=== PATIENT | female | born 1985 | race American Indian/Alaskan Native ===

== ENCOUNTER 2021-02-22 09:38 | Emergency (ER) | payer OTHER, MEDICAID ==
[2021-02-22 09:56] VITALS: BP 144/90
[2021-02-22] MEDS ORDERED: ACETAMINOPHEN 500 MG TAB PO STA (11:29)
[2021-02-22] MEDS ORDERED: IBUPROFEN 800 MG TAB PO STA (11:29)
[2021-02-22] MEDS ORDERED: IBUPROFEN 800 MG TAB ONE (11:35)
[2021-02-22] MEDS ORDERED: ACETAMINOPHEN 500 MG TAB ONE (11:35)
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
== END 2021-02-22 13:00 | disposition home or self-care (01) ==
LOC: ED 09:38
DX: M54.2 Cervicalgia (principal); M54.6 Pain in thoracic spine; F17.200 Nicotine dependence, unspecified, uncomplicated; Z98.890 Other specified postprocedural states; Z72.89 Other problems related to lifestyle; V87.7XXA Person injured in collision between other specified motor vehicles (traffic), initial encounter; Y93.89 Activity, other specified; Y92.488 Other paved roadways as the place of occurrence of the external cause; Y99.8 Other external cause status
CPT/HCPCS: 72040; 99283

== ENCOUNTER 2021-05-31 15:03 | Emergency (ER) | payer MEDICAID, OTHER ==
[2021-05-31] MEDS ORDERED: ACETAMINOPHEN 500 MG TAB PO ONE (15:33)
[2021-05-31 15:49] LABS: Basophils # (Auto) 0.1 K/mm3 (0.0-0.1); Basophils % (Auto) 0.6 % (0.0-1.8); Eosinophils # (Auto) 0.1 K/mm3 (0.0-0.4); Eosinophils % (Auto) 1.7 % (0.0-4.3); Hematocrit 32.5 % (30.3-42.9); Hemoglobin 11.1 gm/dl (10.1-14.3); Lymphocytes # (Auto) 1.8 K/mm3 (1.2-5.4); Lymphocytes % (Auto) 20.9 % (13.4-35.0); Mean Corpuscular HGB Conc 34 % (30-34); Mean Corpuscular Volume 87 fl (79-97); Monocytes # (Auto) 0.5 K/mm3 (0.0-0.8); Platelet Count 325 K/mm3 (140-440); Red Blood Count 3.75 M/mm3 (3.65-5.03); Red Cell Distribution Width 19.6 % (13.2-15.2)
[2021-05-31 16:04] LABS: Alanine Aminotransferase 14 units/L (7-56); Blood Urea Nitrogen 8 mg/dL (7-17); Calcium 9.2 mg/dL (8.4-10.2); Hemolysis Index 1
[2021-05-31 16:08] LABS: INR 0.95 (0.87-1.13)
[2021-05-31 16:10] LABS: Partial Thromboplastin Time 31.6 Sec. (24.2-36.6)
--- NOTE | 2021-05-31 16:13 | Emergency Department Report ---
ED HPI - General Chief complaint: Vaginal Bleeding Stated complaint: /CRAMPING/SPOTTING Time Seen by Provider: 05/31/21 15:31 Source: patient Mode of arrival: Ambulatory Limitations: No Limitations - History of Present Illness Initial comments: This is a 36-year-old female nontoxic, well nourished in appearance, no acute signs of distress presents to the ED with c/o of vaginal bleeding and pelvic pains x1 day. Patient stated yesterday she noticed some spotting. Stated goes about 1 pad in 24 hours since vaginal bleeding. Patient denies any upper abdominal pain. Describes pelvic pain as cramping. Patient denies any vaginal discharge or foul odor. Patient denies any nausea, vomiting, chest pain, shortness of breathe, fever, chills, headache, stiff neck, numbness, tingling. Patient denies any urinary symptoms. Patient denies any allergies or PMH. Patient stated she is unsure how far along she is. MD Complaint: vaginal bleeding, other (pelvic pain) -: days(s) Location: pelvis Radiation: none Severity: mild Severity scale (0 -10): 3 Quality: cramping Consistency: intermittent Improves with: none Worsens with: none Associated symptoms: vaginal bleeding. denies: nausea/vomiting, vaginal discharge, abdominal pain, dysuria, headache, vision changes, malaise, dysparuenia, rash, seizure, shortness of breath, syncope, weakness Vaginal bleeding: light :: Yes Pre- care: none - Related Data Previous Rx's Medication Instructions Recorded Last Taken Type Naproxen 500 mg PO BID PRN #20 tablet 02/22/21 Unknown Rx methocarbamoL [Methocarbamol] 750 - 1,500 mg PO TID PRN #24 02/22/21 Unknown Rx tablet 21/Iron Fu/Folic Acid 1 each PO DAILY #30 tablet 05/31/21 Unknown Rx [ Complete Caplet] Allergies Allergy/AdvReac Type Severity Reaction Status Date / Time No Known Allergies Allergy Unverified 05/31/21 15:15 ED Review of Systems ROS: Stated complaint: /CRAMPING/SPOTTING Other details as noted in HPI Comment: All other systems reviewed and negative Constitutional: denies: chills, fever Eyes: denies: eye pain, eye discharge, vision change ENT: denies: ear pain, throat pain Respiratory: denies: cough, shortness of breath, wheezing Cardiovascular: denies: chest pain, palpitations Endocrine: no symptoms reported Gastrointestinal: denies: abdominal pain, nausea, diarrhea Genitourinary: abnormal menses. denies: urgency, dysuria, frequency, hematuria, discharge, dyspareunia Musculoskeletal: denies: back pain, joint swelling, arthralgia Skin: denies: rash, lesions Neurological: denies: headache, weakness, paresthesias Psychiatric: denies: anxiety, depression Hematological/Lymphatic: denies: easy bleeding, easy bruising ED Past Medical Hx - Past Medical History Previous Medical History?: Yes Additional medical history: Childbirth by - Surgical History Past Surgical History?: Yes Additional Surgical History: , Umbilical hernia repair - Social History Smoking Status: Current Every Day Smoker Substance Use Type: Alcohol, Marijuana - Medications Home Medications: Home Medications Medication Instructions Recorded Confirmed Last Taken Type Naproxen 500 mg PO BID PRN #20 tablet 02/22/21 Unknown Rx methocarbamoL [Methocarbamol] 750 - 1,500 mg PO TID PRN #24 02/22/21 Unknown Rx tablet 21/Iron Fu/Folic Acid 1 each PO DAILY #30 tablet 05/31/21 Unknown Rx [ Complete Caplet] ED Physical Exam - General Limitations: No Limitations General appearance: alert, in no apparent distress - Head Head exam: Present: atraumatic, normocephalic - Eye Eye exam: Present: normal appearance - Neck Neck exam: Present: normal inspection, full ROM. Absent: lymphadenopathy - Respiratory Respiratory exam: Present: normal lung sounds bilaterally. Absent: respiratory distress, wheezes, rales, rhonchi, stridor, chest wall tenderness, accessory muscle use, decreased breath sounds, prolonged expiratory - Cardiovascular Cardiovascular Exam: Present: regular rate, normal rhythm, normal heart sounds. Absent: bradycardia, tachycardia, irregular rhythm, systolic murmur, diastolic murmur, rubs, gallop - GI/Abdominal GI/Abdominal exam: Present: soft, normal bowel sounds. Absent: distended, tenderness, guarding, rebound, rigid, diminished bowel sounds - Extremities Exam Extremities exam: Present: normal inspection, full ROM, normal capillary refill. Absent: tenderness - Back Exam Back exam: Present: normal inspection, full ROM. Absent: tenderness, CVA tenderness (R), CVA tenderness (L), muscle spasm, paraspinal tenderness, vertebral tenderness, rash noted - Neurological Exam Neurological exam: Present: alert, oriented X3, normal gait - Psychiatric Psychiatric exam: Present: normal affect, normal mood - Skin Skin exam: Present: warm, dry, intact, normal color. Absent: rash ED Course Vital Signs 05/31/21 15:13 Temperature 98.3 F Pulse Rate 74 Respiratory 16 Rate Blood Pressure 125/68 O2 Sat by Pulse 100 Oximetry - Reevaluation(s) Reevaluation #1: 05/31/21 16:13 Patient is speaking in full sentences with no signs of distress noted. ED Medical Decision Making - Lab Data Result diagrams: 05/31/21 15:36 05/31/21 15:36 Lab Results 05/31/21 05/31/21 05/31/21 Range/Units 15:36 15:36 15:36 WBC 8.6 (4.5-11.0) K/mm3 RBC 3.75 (3.65-5.03) M/mm3 Hgb 11.1 (10.1-14.3) gm/dl Hct 32.5 (30.3-42.9) % MCV 87 (79-97) fl MCH 30 (28-32) pg MCHC 34 (30-34) % RDW 19.6 H (13.2-15.2) % Plt Count 325 (140-440) K/mm3 Lymph % (Auto) 20.9 (13.4-35.0) % [place] % (Auto) 6.0 (0.0-7.3) % Eos % (Auto) 1.7 (0.0-4.3) % Baso % (Auto) 0.6 (0.0-1.8) % Lymph # (Auto) 1.8 (1.2-5.4) K/mm3 [place] # (Auto) 0.5 (0.0-0.8) K/mm3 Eos # (Auto) 0.1 (0.0-0.4) K/mm3 Baso # (Auto) 0.1 (0.0-0.1) K/mm3 Seg Neutrophils % 70.8 H (40.0-70.0) % Seg Neutrophils # 6.1 (1.8-7.7) K/mm3 PT (12.2-14.9) Sec. INR (0.87-1.13) APTT (24.2-36.6) Sec. Sodium 135 L (137-145) mmol/L Potassium 3.6 (3.6-5.0) mmol/L Chloride 100.8 (98-107) mmol/L Carbon Dioxide 24 (22-30) mmol/L Anion Gap 14 mmol/L BUN 8 (7-17) mg/dL Creatinine 0.5 L (0.6-1.2) mg/dL Estimated GFR > 60 ml/min BUN/Creatinine Ratio 16 % Glucose 85 (65-100) mg/dL Calcium 9.2 (8.4-10.2) mg/dL Total Bilirubin 0.30 (0.1-1.2) mg/dL AST 14 (5-40) units/L ALT 14 (7-56) units/L Alkaline Phosphatase 64 (35-129) units/L Total Protein 7.6 (6.3-8.2) g/dL Albumin 4.0 (3.9-5) g/dL Albumin/Globulin Ratio 1.1 % HCG, Quant [id number] H (0-4) mIU/mL Urine Color (Yellow) Urine Turbidity (Clear) Urine pH (5.0-7.0) Ur Specific [place] (1.003-1.030) Urine Protein (Negative) mg/dL Urine Glucose (UA) (Negative) mg/dL Urine Ketones (Negative) mg/dL Urine Blood (Negative) Urine Nitrite (Negative) Urine Bilirubin (Negative) Urine Urobilinogen (<2.0) mg/dL Ur Leukocyte Esterase (Negative) Urine WBC (Auto) (0.0-6.0) /HPF Urine RBC (Auto) (0.0-6.0) /HPF U Epithel Cells (Auto) (0-13.0) /HPF Urine Mucus /HPF Blood Type 05/31/21 05/31/21 05/31/21 Range/Units 15:36 15:36 Unknown WBC (4.5-11.0) K/mm3 RBC (3.65-5.03) M/mm3 Hgb (10.1-14.3) gm/dl Hct (30.3-42.9) % MCV (79-97) fl MCH (28-32) pg MCHC (30-34) % RDW (13.2-15.2) % Plt Count (140-440) K/mm3 Lymph % (Auto) (13.4-35.0) % [place] % (Auto) (0.0-7.3) % Eos % (Auto) (0.0-4.3) % Baso % (Auto) (0.0-1.8) % Lymph # (Auto) (1.2-5.4) K/mm3 [place] # (Auto) (0.0-0.8) K/mm3 Eos # (Auto) (0.0-0.4) K/mm3 Baso # (Auto) (0.0-0.1) K/mm3 Seg Neutrophils % (40.0-70.0) % Seg Neutrophils # (1.8-7.7) K/mm3 PT 13.2 (12.2-14.9) Sec. INR 0.95 (0.87-1.13) APTT 31.6 (24.2-36.6) Sec. Sodium (137-145) mmol/L Potassium (3.6-5.0) mmol/L Chloride (98-107) mmol/L Carbon Dioxide (22-30) mmol/L Anion Gap mmol/L BUN (7-17) mg/dL Creatinine (0.6-1.2) mg/dL Estimated GFR ml/min BUN/Creatinine Ratio % Glucose (65-100) mg/dL Calcium (8.4-10.2) mg/dL Total Bilirubin (0.1-1.2) mg/dL AST (5-40) units/L ALT (7-56) units/L Alkaline Phosphatase (35-129) units/L Total Protein (6.3-8.2) g/dL Albumin (3.9-5) g/dL Albumin/Globulin Ratio % HCG, Quant (0-4) mIU/mL Urine Color Yellow (Yellow) Urine Turbidity Slightly-cloudy (Clear) Urine pH 6.0 (5.0-7.0) Ur Specific [place] 1.013 (1.003-1.030) Urine Protein <15 mg/dl (Negative) mg/dL Urine Glucose (UA) Neg (Negative) mg/dL Urine Ketones Neg (Negative) mg/dL Urine Blood Sm (Negative) Urine Nitrite Neg (Negative) Urine Bilirubin Neg (Negative) Urine Urobilinogen < 2.0 (<2.0) mg/dL Ur Leukocyte Esterase Neg (Negative) Urine WBC (Auto) < 1.0 (0.0-6.0) /HPF Urine RBC (Auto) 2.0 (0.0-6.0) /HPF U Epithel Cells (Auto) 15.0 H (0-13.0) /HPF Urine Mucus Few /HPF Blood Type B POSITIVE - Radiology Data [address] [address] Ultrasound Report Signed Patient: MELISSA COKER MR#: [id number] 29 : 1985 Acct:[id number] Age/Sex: 36 / F ADM Date: 05/31/21 Loc: ED [facility] Dr: Ordering Physician: GISELL CHAIREZ NP Date of Service: 05/31/21 Procedure(s): US OB transvaginal Accession Number(s): [id number] cc: GISELL CHAIREZ NP ULTRASOUND OBSTETRIC INDICATION / CLINICAL INFORMATION: pelvic pain and bleeding. Clinical Gestational Age (GA) in weeks, days: Unknown TECHNIQUE: Transabdominal. Transvaginal COMPARISON: None available. FINDINGS: GESTATIONAL SAC: Well-defined oval shape and intrauterine in location. YOLK SAC: No significant abnormality. EMBRYO/FETUS: No significant abnormality. - [place]-Rump Length = 2.6 cm = 9 weeks, 3 days - Heart Rate, beats per minute (if present) = 174 ADNEXA: Both ovaries are well-visualized and appear unremarkable. No adnexal mass. FREE FLUID: None. ADDITIONAL FINDINGS: There is subchorionic hemorrhage along the inferior aspect of the gestational sac measuring approximately 2.1 x 1.7 cm. IMPRESSION: 1. Single, living intrauterine with estimated sonographic age of 9 weeks, 3 days. 2. 2 cm inferior subchorionic hemorrhage. Signer Name: Yaima Melara MD Signed: 05/31/2021 4:44 PM Workstation Name: [id number] Transcribed By: Dictated By: Yaima Melara MD Electronically Authenticated By: Yaima Melara MD Signed Date/Time: 05/31/211643 DD/ 40 TD/TT: [address] [place] [address] Ultrasound Report Signed Patient: MELISSA COKER MR#: [id number] [birth year] : 1985 Acct:[id number] Age/Sex: 36 / F ADM Date: 05/31/21 Loc: ED Attending Dr: Ordering Physician: GISELL CHAIREZ NP Date of Service: 05/31/21 Procedure(s): US OB <= 14 weeks fetus Accession Number(s): [id number] cc: GISELL CHAIREZ NP ULTRASOUND OBSTETRIC INDICATION / CLINICAL INFORMATION: pelvic pain and bleeding. Clinical Gestational Age (GA) in weeks, days: Unknown TECHNIQUE: Transabdominal. Transvaginal COMPARISON: None available. FINDINGS: GESTATIONAL SAC: Well-defined oval shape and intrauterine in location. YOLK SAC: No significant abnormality. EMBRYO/FETUS: No significant abnormality. - [place]-Rump Length = 2.6 cm = 9 weeks, 3 days - Heart Rate, beats per minute (if present) = 174 ADNEXA: Both ovaries are well-visualized and appear unremarkable. No adnexal mass. FREE FLUID: None. ADDITIONAL FINDINGS: There is subchorionic hemorrhage along the inferior aspect of the gestational sac measuring approximately 2.1 x 1.7 cm. IMPRESSION: 1. Single, living intrauterine with estimated sonographic age of 9 weeks, 3 days. 2. 2 cm inferior subchorionic hemorrhage. Signer Name: Yaima Melara MD Signed: 05/31/2021 4:44 PM Workstation Name: [id number] Transcribed By: Dictated By: Yaima Melara MD Electronically Authenticated By: Yaima Melara MD Signed Date/Time: 05/31/211643 DD/ 40 TD/TT: - Medical Decision Making This is a 36-year-old female presents with threatened miscarriage. Patient is stable and was examined by me. Normal abdominal exam. US OB obtained and dictated by the radiologist. Ua obtained. Quantative serum test obtained. P atient notified of the US report with no questions noted by the patient. Patient was instructed f/u with [facility] in 3-5 days. RH factor positive. Labs within normal limits. At time of discharge, the patient does not seem toxic or ill in appearance. No acute signs of distress noted. Patient agrees to discharge treatment plan of care. No further questions noted by the patient. Critical care attestation.: If time is entered above; I have spent that time in minutes in the direct care of this critically ill patient, excluding procedure time. ED Disposition Clinical Impression: Threatened miscarriage Disposition: HOME / SELF CARE / HOMELESS Is pt being admited?: No Does the pt Need Aspirin: No Condition: Stable Instructions: Threatened Miscarriage Additional Instructions: Follow-up with a [facility] doctor in 3-5 days or if symptoms worsen and continue return to emergency room as soon as possible. Prescriptions: 21/Iron Fu/Folic Acid [ Complete Caplet] 1 each PO DAILY #30 tablet Referrals: [facility]IMARY [facility] [Primary Care Provider] - 3-5 Days [facility] [Provider Group] - 3-5 Days [facility] [Provider Group] - 3-5 Days Forms: Work/School Release Form(ED) Time of Disposition: 17:30
[2021-05-31 16:14] LABS: BUN/Creatinine Ratio 16
--- NOTE | 2021-05-31 16:49 | Ultrasound Report ---
ULTRASOUND OBSTETRIC INDICATION / CLINICAL INFORMATION: pelvic pain and bleeding. Clinical Gestational Age (GA) in weeks, days: Unknown TECHNIQUE: Transabdominal. Transvaginal COMPARISON: None available. FINDINGS: GESTATIONAL SAC: Well-defined oval shape and intrauterine in location. YOLK SAC: No significant abnormality. EMBRYO/FETUS: No significant abnormality. - [place]-Rump Length = 2.6 cm = 9 weeks, 3 days - Heart Rate, beats per minute (if present) = 174 ADNEXA: Both ovaries are well-visualized and appear unremarkable. No adnexal mass. FREE FLUID: None. ADDITIONAL FINDINGS: There is subchorionic hemorrhage along the inferior aspect of the gestational sa c measuring approximately 2.1 x 1.7 cm. IMPRESSION: 1. Single, living intrauterine with estimated sonographic age of 9 weeks, 3 days. 2. 2 cm inferior subchorionic hemorrhage. Signer Name: Yaima Melara MD Signed: 05/31/2021 4:44 PM Workstation Name: [id number]
--- NOTE | 2021-05-31 16:49 | Ultrasound Report ---
ULTRASOUND OBSTETRIC INDICATION / CLINICAL INFORMATION: pelvic pain and bleeding. Clinical Gestational Age (GA) in weeks, days: Unknown TECHNIQUE: Transabdominal. Transvaginal COMPARISON: None available. FINDINGS: GESTATIONAL SAC: Well-defined oval shape and intrauterine in location. YOLK SAC: No significant abnormality. EMBRYO/FETUS: No significant abnormality. - [place]-Rump Length = 2.6 cm = 9 weeks, 3 days - Heart Rate, beats per minute (if present) = 174 ADNEXA: Both ovaries are well-visualized and appear unremarkable. No adnexal mass. FREE FLUID: None. ADDITIONAL FINDINGS: There is subchorionic hemorrhage along the inferior aspect of the gestational sa c measuring approximately 2.1 x 1.7 cm. IMPRESSION: 1. Single, living intrauterine with estimated sonographic age of 9 weeks, 3 days. 2. 2 cm inferior subchorionic hemorrhage. Signer Name: Yaima Melara MD Signed: 05/31/2021 4:44 PM Workstation Name: [id number]
[2021-05-31 16:51] LABS: Bilirubin,Urine NEG (Negative); Blood,Urine SM (Negative); Color,Urine Yellow (Yellow); Mucus,Urine FEW /HPF; Protein,Urine <15 mg/dL mg/dL (Negative); Urobilinogen,Urine < 2.0 mg/dL (<2.0); WBC,Urine < 1.0 /HPF (0.0-6.0)
[2021-05-31 17:43] VITALS: BP 120/70
== END 2021-05-31 17:43 | disposition home or self-care (01) ==
LOC: ED 15:03
DX: O20.0 Threatened abortion (principal); Z3A.09 9 weeks gestation of pregnancy; Z98.890 Other specified postprocedural states; F17.290 Nicotine dependence, other tobacco product, uncomplicated
CPT/HCPCS: 36415; 76801; 76817; 80053; 81001; 84702; 85025; 85610; 85730; 86900; 86901; 99284